=== PATIENT | male | born 1955 | race Caucasian/White ===

== ENCOUNTER → 2020-04-02 | Outpatient (CLI) | payer OTHER | LOC: SJCVCIMAG 09:18 | DX: I35.0 Nonrheumatic aortic (valve) stenosis (principal); R53.83 Other fatigue; R03.0 Elevated blood-pressure reading, without diagnosis of hypertension ==

== ENCOUNTER → 2020-04-15 | Outpatient (CLI) | payer BC ==
[~2020-04-15] VITALS: Ht 185.4 cm; Wt 110.2 kg
[~2020-04-15] MED LIST: ASA81BEC PO; CLARITIN10 MG PO; COZAAR 25 MG TA25 M2 PO; HYDROCHLOROTHIA25 M2 PO; LIPITOR40 MG PO; SUPER THERAVIT1 EACH PO
[2020-04-15 06:56] VITALS: BP 166/79
--- NOTE | 2020-04-15 08:55 | CATHLAB ---
[facility] [place] [address] INVASIVE PROCEDURE REPORT Name: OG LAWSON Room #: REG ALOK Bergeron.#: [id number] Admission: 04/15/20 Attend Phys: Earnest Cordova MD, Discharge: Date of : 57 Report #: [id number] THIS REPORT FOR: cc: Jose Juan Leiva MD, David P. MD Lundgren, Craig H. MD [facility] ~ APPROVED REPORT Study performed: 04/15/2020 07:53:13 Patient Details Patient Status: Out-Patient Room #: The patient is a 64 year-old male Event Personnel Earnest Cordova Senior Asic Engineer, Christina Hamm RN RN, Mayco Pastor RN RN, Mary Nair RTR Monitor, Sarah Boles RTR, GROUT MACHINE OPERATOR Scrub Procedures Performed Left Heart Cath w/or w/o Coronaries [id number] [facility] Art Access - R femoral artery* 79132 Initial Mod Sed Same Phys/QHP Gr5y 715189 Hemostasis w/ Mynx Indication Chest pain Procedure Narrative The patient was brought electively to the Cardiac Catheterization Laboratory and was prepped and draped in a sterile manner. The Right Groin^ was infiltrated with 1% Lidocaine subcutaneous anesthesia. A PINNACLE 6FR Sheath #[id number] sheath was inserted into the RFA^. Coronary angiography was performed using coronary diagnostic catheters. The right coronary system was accessed and visualized with a JR4 catheter. The left coronary system was accessed and visualized with a JL4 catheter. The left ventricle was accessed and visualized with a PIGTAIL catheter. Closure device was deployed with a Fr MYNXGRIP 6/7F #[id number]. The patient tolerated the procedure well and there were no complications associated with the procedure. There was no hematoma. Intraoperative Conscious Sedation Fentanyl mcg Versed mg [address] [address] INVASIVE PROCEDURE REPORT Name: OG LAWSON Room #: [facility] [id number] Admission: 04/15/20 Attend Phys: Earnest Cordova, Discharge: Date of : 57 Report #: [id number] Fluoro Time: 1.15 minutes Dose: DAP 3596.50 cGycm2 Contrast Type and Amount: Omnipaque 135 ml Coronary Angiography The patient's coronary anatomy is co- dominant. Diagnostic Cath Left Main Short, normal left main LAD Normal left anterior descending Diagonal 1 Normal Diagonal 2 Normal Diagonal 3 Normal Circumflex Large circumflex comprised of a single large marginal branch, codominant. OM1 Normal first marginal branch Right Coronary Codominant right coronary, angiographically normal R PDA Normal posterior descending RPLV Relatively small, normal posterior lateral branch Left Ventriculography The left ventricle is normal in size with normal contractility. The left ventricular ejection fraction is estimated to be 60-65%. Left ventricular wall motion abnormalities are not present. There is no mitral insufficiency. Hemodynamics The aortic pressure is 165/82 mmHg with a mean of mmHg. The left ventricular pressure is 176/17 mmHg with a mean of mmHg. The left ventricular end diastolic pressure is 40 mmHg. Pullback from the left ventricle to the aorta revealed no gradient across the aortic valve. Conclusion 1. Normal global and regional left ventricular systolic function. Ejection fraction 65% 2. Normal, short left main 3. Normal coronary vasculature. Codominant circulation <ELECTRONICALLY SIGNED> By: Earnest Cordova MD, FACC 04/15/20 [id number] Earnest Cordova MD, FACC /INF
== END | disposition home or self-care (01) ==
LOC: CATH 06:43
PROVIDERS: ATTEND Internal Medicine
DX: R07.9 Chest pain, unspecified (principal); I10 Essential (primary) hypertension; E78.5 Hyperlipidemia, unspecified; J45.909 Unspecified asthma, uncomplicated; E05.00 Thyrotoxicosis with diffuse goiter without thyrotoxic crisis or storm; Z98.890 Other specified postprocedural states; Z11.59 Encounter for screening for other viral diseases; Z79.899 Other long term (current) drug therapy; Z79.82 Long term (current) use of aspirin